=== PATIENT | female | born 1980 | race Caucasian/White ===

== ENCOUNTER 2017-04-26 15:55 | Emergency (ER) | payer OTHER ==
[~2017-04-26] VITALS: Ht 160 cm; Wt 99.9 kg
[~2017-04-26 15:55] MED LIST: MACROBID100 MG PO; Motrin PO
[2017-04-26 18:54] VITALS: BP 144/81
== END 2017-04-26 18:54 | disposition home or self-care (01) ==
LOC: EME 15:55
DX: O20.9 Hemorrhage in early pregnancy, unspecified (principal); Z3A.01 Less than 8 weeks gestation of pregnancy; O99.331 Smoking (tobacco) complicating pregnancy, first trimester; F17.200 Nicotine dependence, unspecified, uncomplicated; Z90.721 Acquired absence of ovaries, unilateral
CPT/HCPCS: 99281; 99284